=== PATIENT | male | born 1945 | race Native Hawaiian/Other Pacific Islander ===

== ENCOUNTER 2017-02-22 12:03 | Outpatient (CLI) | payer OTHER, BC ==
[~2017-02-22 12:03] MED LIST: BAYER ASA325 M1 PO; METO50TA27 PO; MONT10TA PO; PRILOSEC OTC20 MG PO; TAMS0.4C PO; TRAM50TA PO
== END 2017-02-22 13:05 | disposition home or self-care (01) ==
LOC: LABW 12:03
DX: R10.84 Generalized abdominal pain (principal)
CPT/HCPCS: 36415; 82565; 84520; Q9963

== ENCOUNTER 2017-03-17 11:42 | Day surgery (SDC) | payer OTHER, BC ==
[2017-03-17 12:45] LABS: PLATELET COUNT 184 K/uL (142-355)
[2017-03-17 12:52] LABS: POTASSIUM 4.2 mmol/L (3.6-5.2)
== END 2017-03-17 15:05 | disposition home or self-care (01) ==
LOC: OR 11:42
PROVIDERS: Internal Medicine Gastroenterology
PROC: 0DBK8ZZ Excision of Ascending Colon, Via Natural or Artificial Opening Endoscopic (ICD-10-PCS; principal; 2017-03-17)
PROC: 0DBL8ZZ Excision of Transverse Colon, Via Natural or Artificial Opening Endoscopic (ICD-10-PCS; 2017-03-17)
DX: D12.2 Benign neoplasm of ascending colon (principal); D12.3 Benign neoplasm of transverse colon; K63.5 Polyp of colon; K57.30 Diverticulosis of large intestine without perforation or abscess without bleeding; K57.92 Diverticulitis of intestine, part unspecified, without perforation or abscess without bleeding; K64.8 Other hemorrhoids; R10.32 Left lower quadrant pain; R19.4 Change in bowel habit; R93.5 Abnormal findings on diagnostic imaging of other abdominal regions, including retroperitoneum
CPT/HCPCS: 80053; 85027; J2001; J2704; J3010

== ENCOUNTER 2017-12-02 18:00 | Emergency (ER) | payer OTHER, BC ==
[~2017-12-02] VITALS: Ht 185.4 cm; Wt 90.7 kg
[2017-12-02 18:50] LABS: PLATELET COUNT 168 K/uL (142-355)
[2017-12-02 18:56] LABS: POTASSIUM 4.7 mmol/L (3.6-5.2); SODIUM 136 mmol/L (136-145)
[2017-12-02 20:05] VITALS: BP 1145/68; TEMP 98.6
== END 2017-12-02 20:05 | disposition home or self-care (01) ==
LOC: ED 18:00
DX: I49.8 Other specified cardiac arrhythmias (principal)
CPT/HCPCS: 36415; 74022; 80053; 81000; 82550; 82553; 84484; 85027; 93005; 96360; 99284

== ENCOUNTER 2018-06-26 16:09 | Emergency (ER) | payer OTHER, BC ==
[~2018-06-26] VITALS: Ht 182.9 cm; Wt 90.7 kg
[2018-06-26 16:45] VITALS: BP 147/79; TEMP 97.7
== END 2018-06-26 16:53 | disposition home or self-care (01) ==
LOC: ED 16:09
DX: Z48.02 Encounter for removal of sutures (principal)

== ENCOUNTER 2021-03-24 14:03 | Outpatient (CLI) | payer BC ==
[2021-03-24 14:29] LABS: PLATELET COUNT 148 K/uL (142-355)
[2021-03-24 14:40] LABS: POTASSIUM 4.5 mmol/L (3.6-5.2)
== END 2021-03-24 18:55 | disposition home or self-care (01) ==
LOC: LABW 14:03
PROVIDERS: ATTEND Internal Medicine Gastroenterology
DX: K92.1 Melena (principal)
CPT/HCPCS: 36415; 80053; 85027

== ENCOUNTER 2021-11-15 16:51 | Emergency (ER) | payer BC ==
[~2021-11-15] VITALS: Ht 185.4 cm; Wt 91.6 kg
[2021-11-15 20:00] LABS: POTASSIUM 4.6 mmol/L (3.6-5.2)
[2021-11-15 21:00] VITALS: BP 135/84; TEMP 98.9
== END 2021-11-15 21:00 | disposition home or self-care (01) ==
LOC: ED 16:51
PROVIDERS: Family Medicine
DX: U07.1 COVID-19 (principal)
CPT/HCPCS: 36415; 80053; 87635; 99282; U0003

== ENCOUNTER 2022-07-02 09:47 | Outpatient (CLI) | payer BC | END 2022-07-02 20:49 | disposition home or self-care (01) | LOC: CT 09:47 | PROVIDERS: ATTEND Internal Medicine | DX: R10.84 Generalized abdominal pain (principal); Z87.898 Personal history of other specified conditions; K21.9 Gastro-esophageal reflux disease without esophagitis; Z09 Encounter for follow-up examination after completed treatment for conditions other than malignant neoplasm | CPT/HCPCS: 36415; 82565; 84520; Q9963 ==

== ENCOUNTER 2022-11-30 12:44 | Observation (INO) | payer BC ==
[~2022-11-30] VITALS: Ht 185.4 cm; Wt 95.5 kg
[2022-11-30] VITALS (7 sets, daily range): BP systolic 136–163; BP diastolic 57–76; TEMP 97.6–98.7; Ht 185.4 cm; Wt 95.5 kg
[2022-11-30 13:07] LABS: PLATELET COUNT 147 K/uL (142-355)
[2022-11-30 13:12] LABS: POTASSIUM 4.2 mmol/L (3.6-5.2)
[2022-11-30] MEDS ORDERED: ASPIRIN/ENTERIC81 MG PO (19:15)
[2022-11-30] MEDS ORDERED: PANTOPRAZOLE 40MG TA PO (19:18)
[2022-11-30] MEDS ORDERED: AMLODIPINE BESYLATE PO (19:18)
[2022-11-30] MEDS ORDERED: ALPR0.2566 PO (19:19)
[2022-11-30] MEDS ORDERED: LOSA50TA PO (19:19)
[2022-12-01 03:33] VITALS: BP 117/58; TEMP 98.2
[2022-12-01 07:46] VITALS: BP 118/65; TEMP 99
[2022-12-01] MEDS ORDERED: ONDA4TAB3 SL (11:31)
[2022-12-01 12:00] VITALS: BP 150/63; TEMP 98
== END 2022-12-01 12:00 | disposition home or self-care (01) ==
LOC: ED 12:44 → MED/SURG 17:20
PROVIDERS: ADMIT Family Medicine; ATTEND Internal Medicine
DX: R42 Dizziness and giddiness (principal); R11.0 Nausea; I10 Essential (primary) hypertension; N40.0 Benign prostatic hyperplasia without lower urinary tract symptoms; K21.9 Gastro-esophageal reflux disease without esophagitis
CPT/HCPCS: 80053; 81002; 82150; 82550; 83690; 84484; 85027; 93005; 96360; 96361; 99221; 99284; G0378; J0360; J2405